=== PATIENT | female | born 1980 | race Caucasian/White ===

== ENCOUNTER 2018-04-28 06:49 | Inpatient (IN) | payer BC, MEDICAID ==
[~2018-04-28 06:49] MED LIST: Lidocaine 1%/Sod Bicarbonate in NS 8.4% 1 ML Syringe IDERM PRN; Sodium Chloride 0.9% 10 ML Syringe FLUSH PRN
[2018-04-28] MEDS ORDERED: Ondansetron 4 MG/2 ML SDV ONE (07:14)
[2018-04-28] MEDS ORDERED: Lidocaine 1% 4 ML ONE (07:14)
[2018-04-28] MEDS ORDERED: Midazolam 1 MG/ML 2 ML SDV ONE (07:14)
[2018-04-28] MEDS ORDERED: Propofol 200 MG/20 ML SDV ONE (07:14)
[2018-04-28] MEDS ORDERED: Rocuronium 50 MG/5 ML Vial ONE (07:14)
[2018-04-28] MEDS ORDERED: fentaNYL 250 MCG/5 ML SDV ONE (07:15)
[2018-04-28] MEDS: Lactated Ringers 1,000 ML IV SCH ×2 (07:15→10:38)
[2018-04-28] MEDS ORDERED: ceFAZolin 1 GM Vial ONE (07:15)
--- NOTE | 2018-04-28 07:28 | PCM.PREANE ---
Preanesthetic Assessment - Procedure Proposed Procedure: total abdominal hyst with BSO - Anesthesia/Transfusion/Family Hx Anesthesia History: Prior Anesthesia Without Reaction Family History of Anesthesia Reaction: No Transfusion History: No Prior Transfusion(s) - Review of Systems General: No Symptoms Pulmonary: No Symptoms Cardiovascular: No Symptoms Gastrointestinal: No Symptoms Neurological: No Symptoms Other: Reports: Easy Bruising, Sinus Problem (chronic sinusitis), Depression - Physical Assessment NPO Status Date: 04/27/18 NPO Status Time: 23:45 Pulse: 64 O2 Sat by Pulse Oximetry: 100 Respiratory Rate: 16 Blood Pressure: 113/56 Temperature: 98.7 F Height: 5 ft 2 in Weight: 57.652 kg ASA Class: 1 Mental Status: Alert & Oriented x3 Airway Class: Mallampati = 1 Dentition: Reports: Normal Dentition Thyro-Mental Finger Breadths: 3 Mouth Opening Finger Breadths: 3 ROM/Head Extension: Full Lungs: Clear to Auscultation, Normal Respiratory Effort Cardiovascular: Regular Rate, Regular Rhythm - Lab Values: Laboratory Last Values WBC 7.50 K/mm3 (3.98-10.04) 04/23/18 11:55 RBC 4.37 M/mm3 (3.98-5.22) 04/23/18 11:55 Hgb 13.4 gm/L (11.2-15.7) 04/23/18 11:55 Hct 39.1 % (34.1-44.9) 04/23/18 11:55 MCV 89.5 fl (79.4-94.8) 04/23/18 11:55 MCH 30.7 pg (25.6-32.2) 04/23/18 11:55 MCHC 34.3 g/dl (32.2-35.5) 04/23/18 11:55 RDW Std Deviation 41.1 fL (36.4-46.3) 04/23/18 11:55 Plt Count 351 K/mm3 (182-369) 04/23/18 11:55 MPV 10.4 fl (9.4-12.3) 04/23/18 11:55 Neut % (Auto) 64.1 % (34.0-71.1) 04/23/18 11:55 Lymph % (Auto) 22.8 % (19.3-51.7) 04/23/18 11:55 [place] % (Auto) 10.4 % (4.7-12.5) 04/23/18 11:55 Eos % (Auto) 2.0 (0.7-5.8) 04/23/18 11:55 Baso % (Auto) 0.7 % (0.1-1.2) 04/23/18 11:55 Neut # (Auto) 4.81 K/mm3 (1.56-6.13) 04/23/18 11:55 Lymph # (Auto) 1.71 K/mm3 (1.18-3.74) 04/23/18 11:55 [place] # (Auto) 0.78 K/mm3 (0.24-0.36) H 04/23/18 11:55 Eos # (Auto) 0.15 K/mm3 (0.04-0.36) 04/23/18 11:55 Baso # (Auto) 0.05 K/mm3 (0.01-0.08) 04/23/18 11:55 Creatinine 0.8 mg/dL (0.55-1.02) 04/23/18 11:55 Est Cr Clr Drug Dosing TNP 04/23/18 11:55 Estimated GFR (MDRD) > 60 mL/min (>60) 04/23/18 11:55 Urine Color Yellow (Yellow) 04/23/18 11:55 Urine Appearance Clear (Clear) 04/23/18 11:55 Urine pH 6.0 (5.0-8.0) 04/23/18 11:55 Ur Specific [place] 1.025 (1.005-1.030) 04/23/18 11:55 Urine Protein Negative (Negative) 04/23/18 11:55 Urine Glucose (UA) Negative (Negative) 04/23/18 11:55 Urine Ketones Negative (Negative) 04/23/18 11:55 Urine Occult Blood Negative (Negative) 04/23/18 11:55 Urine Nitrite Negative (Negative) 04/23/18 11:55 Urine Bilirubin Negative (Negative) 04/23/18 11:55 Urine Urobilinogen 0.2 (0.2-1.0) 04/23/18 11:55 Ur Leukocyte Esterase Negative (Negative) 04/23/18 11:55 Urine RBC Not seen /hpf (0-5) 04/23/18 11:55 Urine WBC Not seen /hpf (0-5) 04/23/18 11:55 Ur Epithelial Cells Not seen /hpf (0-5) 04/23/18 11:55 Urine Bacteria Not seen /hpf (FEW) 04/23/18 11:55 Urine Mucus Not seen /hpf (FEW) 04/23/18 11:55 Urine HCG, Qual Negative (NEGATIVE) 04/23/18 11:55 - Allergies Allergies/Adverse Reactions: Allergies Allergy/AdvReac Type Severity Reaction Status Date / Time amoxicillin Allergy Hives Verified 04/24/18 14:47 Sulfa (Sulfonamide Allergy Hives Verified 04/24/18 14:47 Antibiotics) erythromycin base AdvReac Nausea and Verified 04/24/18 14:47 Vomiting - Blood Blood Available: Yes - Acknowledgements Anesthesia Type Planned: General Anesthesia Pt an Appropriate Candidate for the Planned Anesthesia: Yes Alternatives and Risks of Anesthesia Discussed w Pt/Guardian: Yes Pt/Guardian Understands and Agrees with Anesthesia Plan: Yes PreAnesthesia Questionnaire HEENT History: Reports: Allergic Rhinitis Cardiovascular History: Reports: None Respiratory History: Reports: Asthma, Other (See Below) Other Respiratory History: hx sports induced asthma- no problems now Gastrointestinal History: Reports: Celiac Disease, Irritable Bowel Syndrome Other Gastrointestinal History: IBS and celiac disease, gastric ulcer Genitourinary History: Reports: None 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: Reports: Endometriosis Musculoskeletal History: Reports: None Neurological History: Reports: None Psychiatric History: Reports: Depression Endocrine/Metabolic History: Reports: None Hematologic History: Reports: None Immunologic History: Reports: None Oncologic (Cancer) History: Reports: None Dermatologic History: Reports: None - Past Surgical History Head Surgeries/Procedures: Reports: None HEENT Surgical History: Reports: Naso-Sinus Surgery Cardiovascular Surgical History: Reports: None GI Surgical History: Reports: Appendectomy, Cholecystectomy, Colonoscopy Other GI Surgeries/Procedures: hx of colonoscopy and duodenoscopy with bx, exploratory laparotomy and exploratory laparoscopy Female Surgical History: Reports: None Male Surgical History: Reports: None Endocrine Surgical History: Reports: None Neurological Surgical History: Reports: None Musculoskeletal Surgical History: Reports: None Other Musculoskeletal Surgeries/Procedures:: surgery to right 5th finger Oncologic Surgical History: Reports: None - SUBSTANCE USE Smoking Status *Q: Never Smoker Tobacco Use Within Last Twelve Months: No Second Hand Smoke Exposure: No Days Per Week of Alcohol Use: 0 Recreational Drug Use History: No - HOME MEDS Home Medications: Home Meds Cetirizine [ZyrTEC] 0.5 tab PO ACDINNER 01/27/17 [History] Lactobacillus Combination No.4 [Probiotic] 1 tab PO DAILY 01/27/17 [History] Multivitamin [Multivitamins] 1 tab PO DAILY 01/27/17 [History] Biocleanse 1 tab PO DAILY 04/24/18 [History] Glucosamine [Glucosamine Sulfate] 1,000 mg PO DAILY 04/24/18 [History] - CURRENT (IN HOUSE) MEDS Current Meds: Current Medications Lactated Ringer's (Ringers, Lactated) 1,000 mls @ 125 mls/hr IV ASDIRECTED DK Stop: 04/28/18 23:00 Lidocaine/Sodium Bicarbonate (Buffered Lidocaine 1% In Ns 8.4%) 0.25 ml IDERM ONETIME PRN PRN Reason: Prior to IV Start Stop: 04/28/18 18:00 Sodium Chloride (Saline Flush) 10 ml FLUSH ASDIRECTED PRN PRN Reason: Keep Vein Open Stop: 04/28/18 18:00 Discontinued Medications Bupivacaine HCl (Marcaine 0.5%) Confirm Administered Dose 30 ml .ROUTE .STK-MED ONE Stop: 04/28/18 07:16 Cefazolin Sodium (Ancef) Confirm Administered Dose 2 gm .ROUTE .STK-MED ONE Stop: 04/28/18 07:16 Fentanyl (Sublimaze) Confirm Administered Dose 250 mcg .ROUTE .STK-MED ONE Stop: 04/28/18 07:16 Lidocaine HCl (Xylocaine-Mpf 1%) Confirm Administered Dose 4 mls @ as directed .ROUTE .STK-MED ONE Stop: 04/28/18 07:15 Midazolam HCl (Versed 1 Mg/Ml) Confirm Administered Dose 2 mg .ROUTE .STK-MED ONE Stop: 04/28/18 07:15 Ondansetron HCl (Zofran) Confirm Administered Dose 4 mg .ROUTE .STK-MED ONE Stop: 04/28/18 07:15 Propofol (Diprivan 20 Ml) Confirm Administered Dose 200 mg .ROUTE .STK-MED ONE Stop: 04/28/18 07:15 Rocuronium [place] (Zemuron) Confirm Administered Dose 50 mg .ROUTE .STK-MED ONE Stop: 04/28/18 07:15
[2018-04-28] MEDS ORDERED: Dexamethasone 4 MG/ML 5 ML MDV ONE (08:00)
[2018-04-28] MEDS ORDERED: Lactated Ringers 1,000 ML ONE ×2 (08:11→09:01)
[2018-04-28] MEDS ORDERED: HYDROmorphone 0.5 MG/0.5 ML Syringe IVPUSH PRN (08:13)
[2018-04-28] MEDS ORDERED: Meperidine PF 50 MG/ML Syringe IVPUSH PRN (08:13)
[2018-04-28] MEDS ORDERED: Ondansetron 4 MG/2 ML SDV IVPUSH PRN (08:13)
[2018-04-28] MEDS ORDERED: fentaNYL 100 MCG/2 ML SDV IVPUSH PRN (08:13)
[2018-04-28] MEDS: Bupivacaine 0.5% 30 ML SDV ONE ×2 (08:14→08:28)
[2018-04-28] MEDS ORDERED: HYDROmorphone 0.5 MG/0.5 ML Syringe ONE ×3 (08:16→09:19)
[2018-04-28] MEDS ORDERED: fentaNYL 100 MCG/2 ML SDV ONE (08:44)
--- NOTE | 2018-04-28 10:00 | PCM.POSTAN ---
POST ANESTHESIA ASSESSMENT - MENTAL STATUS Mental Status: Alert, Oriented - VITAL SIGNS Pulse Rate: 87 SaO2: 100 Resp Rate: 15 Blood Pressure: 123/67 Temperature: 98.5 F - RESPIRATORY Respiratory Status: Respiratory Rate WNL, Airway Patent, O2 Saturation Stable, Supplemental Oxygen - CARDIOVASCULAR CV Status: Pulse Rate WNL, Blood Pressure Stable - GASTROINTESTINAL GI Status: No Symptoms - PAIN Pain Score: 8 - POST OP HYDRATION Hydration Status: Adequate & Stable
--- NOTE | 2018-04-28 11:05 | PCM.OPNOTE ---
- General Post-Op/Procedure Note Date of Surgery/Procedure: 04/28/18 Operative Procedure(s): Total abdominal hysterectomy with bilateral salpingo- oophorectomy, lysis of pelvic adhesions Findings: Patient appeared to have moderate scarring into the anterior abdominal wall. Upon entry into the pelvic cavity patient is noted to have what appears to be stage IV endometriosis. She is bilateral ovarian endometriomas, left side greater than right in size. Cul-de-sac is completely obliterated. The anterior sigmoid colon was adhered to the posterior aspect of the uterus. Fallopian tubes bilaterally were very filled and tortuous and adhered to the posterior aspect of the uterus or the pelvic sidewall. Anterior cul-de-sac was reasonably free of endometriosis and/or adhesions. Uterus was irregularly shaped consistent with fibroids which diagnosed preoperatively. Pre Op Diagnosis: 1. Dysmenorrhea. 2. Dyspareunia. 3. Menorrhagia. 4. Endometriosis. 5. Pelvic pain. 6. Uterine fibroids Post-Op Diagnosis: Same with the addition of severe pelvic adhesions. Anesthesia Technique: General ET Tube Other Anesthesia Type: Marcaine 0.5%20 mL local Primary Surgeon: Sameer Muro Secondary Surgeon: Sunil Bailey Anesthesia Provider: Yaneli Thomson Reason Scrap Yard Worker Was Necessary: Retraction, assistance, patient's safety, quality of care Role of Scrap Yard Worker: Retraction and assistance Fluid Replacement, Intraop: 2,700 Output, Urine Amount: 150 EBL in mLs: 700 Drain/Tube Comments:: Indwelling bladder catheter Complications: None Condition: Good Free Text/Narrative:: Intake & Output 04/27/18 04/28/18 04/28/18 22:59 06:59 14:59 Intake Total 305 Output Total 350 Balance -45 Surgery duration: 82 minutes Procedure: The patient was taken to the operating room and placed in the supine position on the operating table general endotracheal anesthesia was history. Patient received 2 g of Ancef preoperatively for infection prophylaxis and sequential compression stockings in place for DVT prophylaxis. After adequate anesthesia was draped in usual fashion. An indwelling bladder catheter was placed. The anterior abdominal wall was entered through the grand still incision scar. This after Marcaine infiltration with 20 mL of 0.5% solutio The incision was made through the skin and carried down subcutaneous and fascial layers using sharp dissection. The fascial layer was undermined superiorly and inferiorly to allow for adequate operating room. Recti muscles were midline and the pre-peritoneal fat pad was bluntly dissected. Peritoneal cavity was entered high and without problems. It was immediately apparent that there were significant adhesions and significant endometriosis involved. The sigmoid colon was attached to the backside of the uterus. Both ovaries appeared be involved with endometriomas left side greater than size and right side. Findings otherwise as described above. Initially the sigmoid colon was dissected off the back of the uterus without problems. This using sharp and blunt dissection. The bowel was then packed well out of the way. Decision was made to remove the uterus initially and then work on the adnexa afterwards because of the space-occupying effect of the uterus. The upper cornual area, round ligament, round ligament portion of the uterus was crossclamped with Casi clamps on each side. Pedicles were cut and suture ligated using #1 Vicryl. The broad ligament and eventually the uterine vasculature and cardinal and were taken down in much the same fashion bilaterally. The cardinal ligament and the cervix was then freed up using straight [place] Casi clamps. Each pedicle being suture ligated with Casi stitch of #1 Vicryl. The vagina were crossclamped for hemostasis reasons and the uterine specimen with cervix intact was removed. These last 2 pedicles were suture-ligated using Casi stitch of 1 Vicryl and the short stance in between was closed with a running lock suture of #1 Vicryl in a locked fashion. Attention was then turned towards the right adnexa. The infundibulopelvic ligament was dissected out and clamped and suture ligated. The remaining part of the ovary and the fallopian tube were freed up using sharp and blunt dissection with the endometrioma been completely removed. It was attached to the posterior aspect of the uterus and to the pelvic sidewall. It appeared to be well away from the ureter. The left ovary was then removed in much the same fashion. The endometrioma did rupture and this resulted in release of chocolate-appearing fluid. This is well irrigated out of the pelvic cavity. After the left ovary and fallopian tube were removed, the posterior cul-de-sac had several small bleeders present. 2 these on the anterior surface of the sigmoid colon were controlled with figure- of-eight suture of 3-0 Monocryl using a small needle. With pressure and over the course of short period time the remainder bleeding is essentially stopped. FloSeal was applied to the raw surfaces where the endometriomas had been to dissected free from. This to ensure hemostasis. At this time pelvis was reevaluated and found to be hemostatically intact. Remaining sponges were removed from the abdominal cavity and sponge instrument needle counts were correct at this point. Anterior abdominal wall was then closed. The fascia was closed with #1 PDS from angle to angle. Subcutaneous scarring was freed up which allowed reapproximation skin using a 3-0 Monocryl suture on a Martin needle in a running subcuticular fashion. The skin incision was further approximated using Prineo mesh. At the end of the procedures, sponge instrument needle counts are correct. Patient is in good condition. She was awakened from general endotracheal anesthesia and left the operating room in good condition.
[2018-04-28] MEDS: Morphine 2 MG/ML Syringe IVPUSH PRN ×2 (12:12→21:28)
[2018-04-28] MEDS: Acetaminophen/oxyCODONE 325-5 MG Tab PO PRN ×2 (14:38→19:00)
[2018-04-28] MEDS: Ondansetron 4 MG/2 ML SDV IVPUSH PRN ×2 (14:43→19:00)
[2018-04-28] MEDS: Ibuprofen 600 MG Tab PO PRN (17:44)
[2018-04-29] MEDS: Morphine 2 MG/ML Syringe IVPUSH PRN (00:03)
[2018-04-29] MEDS: Acetaminophen/oxyCODONE 325-5 MG Tab PO PRN ×4 (02:36→16:01)
[2018-04-29] MEDS: Docusate Sodium 100 MG Cap PO SCH ×2 (05:47→08:11)
--- NOTE | 2018-04-29 07:44 | PCM48HPAN ---
Post Anesthesia Note - EVALUATION WITHIN 48HRS OF ANESTHETIC Vital Signs in Normal Range: Yes Patient Participated in Evaluation: Yes Respiratory Function Stable: Yes Airway Patent: Yes Cardiovascular Function Stable: Yes Hydration Status Stable: Yes Pain Control Satisfactory: Yes Nausea and Vomiting Control Satisfactory: Yes Mental Status Recovered: Yes Pulse Rate: 79 Resp Rate: 16 Temperature: 36.9 C Blood Pressure: 120/66 - COMMENTS/OBSERVATIONS Free Text/Narrative:: no anesthesia complications noted
--- NOTE | 2018-04-29 07:47 | PCM.DCSUM1 ---
Discharge Summary - Hospital Course Free Text/Narrative:: Annita is a 38-year-old nulligravida white female admitted yesterday for total abdominal hysterectomy and bilateral salpingo-oophorectomy.Diagnosis was endometriosis, dysmenorrhea, dyspareunia, menorrhagia, uterine fibroids, pelvic pain. Total abdominal hysterectomy with bilateral salpingo-oophorectomy was performed. She is recovering well. Pain has been under good control with morphine sulfate initially followed by Percocet. Patient was started on Motrin this a.m. and will be discharged later on in the day. Vital signs and stable. Patient is afebrile. Follow-up hemoglobin is 10.9 and platelets of 354,000 this morning. - Discharge Data Discharge Date: 04/29/18 Discharge Disposition: Home, Self-Care 01 Condition: Good - Patient Summary/Data Operative Procedure(s) Performed: Total abdominal hysterectomy with bilateral salpingo-oophorectomy, lysis of pelvic adhesions - Patient Instructions Diet: Regular Diet as Tolerated Activity: As Tolerated (No intercourse or tampons until seen back. No lifting greater than 15 pounds or driving a car 1 week.) Driving: Do Not Drive Showering/Bathing: May Shower Wound/Incision Care: Keep Operative Site/Wound Site Clean and Dry Notify Provider of: Fever, Increased Pain, Swelling and Redness, Drainage, Nausea and/or Vomiting - Discharge Plan Prescriptions/Med Rec: Ibuprofen 600 mg PO Q4H PRN #30 tablet PRN Reason: Pain Home Medications: Home Meds Cetirizine [ZyrTEC] 0.5 tab PO ACDINNER 01/27/17 [History] Lactobacillus Combination No.4 [Probiotic] 1 tab PO DAILY 01/27/17 [History] Multivitamin [Multivitamins] 1 tab PO DAILY 01/27/17 [History] Biocleanse 1 tab PO DAILY 04/24/18 [History] Glucosamine [Glucosamine Sulfate] 1,000 mg PO DAILY 04/24/18 [History] Acetaminophen/oxyCODONE [Percocet 325-5 MG] 2 tab PO Q4H PRN tablet 04/29/18 [ Rx] Ibuprofen 600 mg PO Q4H PRN #30 tablet 04/29/18 [Rx] Referrals: Sameer Muro MD [Physician] - (Return to [facility] weeks.) - Discharge Summary/Plan Comment DC Time >30 min.: No Discharge Summary/Plan Comment: Discharge instructions: 1. Discharge home 2. Irregular, high fiber diet 3. Routine postoperative activity as outlined with patient and in discharge summary 4. Return to clinic in 2 weeksDr. Muro. 5. Call for increased pain, bleeding, temperature, signs/symptoms of DVT or PE or signs symptoms of infection. - Patient Data Vitals - Most Recent: Last Vital Signs Temp 37.9 C 04/29/18 04:00 Pulse 67 04/29/18 04:00 Resp 16 04/29/18 04:00 BP 125/72 04/29/18 00:00 Pulse Ox 98 04/29/18 04:00 Weight - Most Recent: 57.652 kg I&O - Last 24 hours: Intake & Output 04/28/18 04/29/18 04/29/18 22:59 06:59 14:59 Intake Total 1120 Output Total 750 2400 Balance 370 -2400 Lab Results - Last 24 hrs: Laboratory Results - last 24 hr 04/28/18 04/29/18 Range/Units 07:23 05:55 WBC 11.85 H (3.98-10.04) K/mm3 RBC 3.55 L (3.98-5.22) M/mm3 Hgb 10.9 L (11.2-15.7) gm/L Hct 31.7 L (34.1-44.9) % MCV 89.3 (79.4-94.8) fl MCH 30.7 (25.6-32.2) pg MCHC 34.4 (32.2-35.5) g/dl RDW Std Deviation 39.3 (36.4-46.3) fL Plt Count 354 (182-369) K/mm3 MPV 10.7 (9.4-12.3) fl Blood Type A POSITIVE Gel Antibody Screen Negative Med Orders - Current: Current Medications Docusate Sodium (Colace) 100 mg PO BID [facility] Last Admin: 04/29/18 05:47 Dose: Not Given Ibuprofen (Motrin) 600 mg PO Q6H PRN PRN Reason: Pain (mild 1-3) Last Admin: 04/28/18 17:44 Dose: 600 mg Morphine Sulfate (Morphine) 1 mg IVPUSH Q2H PRN PRN Reason: Pain (severe 7-10) Last Admin: 04/29/18 00:03 Dose: 1 mg Ondansetron HCl (Zofran) 4 mg IVPUSH Q4H PRN PRN Reason: Nausea/Vomiting Last Admin: 04/28/18 19:00 Dose: 4 mg Oxycodone/Acetaminophen (Percocet 325-5 Mg) 2 tab PO Q4H PRN PRN Reason: Pain (moderate 4-6) Last Admin: 04/29/18 03:22 Dose: 1 tab Estrogens,Conjugated (0.625 Mg Tab.) 0 each PO DAILY DK Discontinued Medications Bupivacaine HCl (Marcaine 0.5%) Confirm Administered Dose 30 ml .ROUTE .STK-MED ONE Stop: 04/28/18 07:16 Last Admin: 04/28/18 08:14 Dose: 20 ml Cefazolin Sodium (Ancef) Confirm Administered Dose 2 gm .ROUTE .STK-MED ONE Stop: 04/28/18 07:16 Dexamethasone (Dexamethasone) Confirm Administered Dose 20 mg .ROUTE .STK-MED ONE Stop: 04/28/18 08:01 Fentanyl (Sublimaze) Confirm Administered Dose 250 mcg .ROUTE .STK-MED ONE Stop: 04/28/18 07:16 Fentanyl (Sublimaze) 50 mcg IVPUSH Q5M PRN PRN Reason: Pain Stop: 04/28/18 10:30 Fentanyl (Sublimaze) Confirm Administered Dose 100 mcg .ROUTE .STK-MED ONE Stop: 04/28/18 08:45 Hydromorphone HCl (Dilaudid) 0.5 mg IVPUSH ONETIME PRN PRN Reason: Pain (severe 7-10) Stop: 04/28/18 10:30 Last Admin: 04/28/18 10:15 Dose: 0.5 mg Hydromorphone HCl (Dilaudid) Confirm Administered Dose 0.5 mg .ROUTE .STK-MED ONE Stop: 04/28/18 08:17 Hydromorphone HCl (Dilaudid) Confirm Administered Dose 0.5 mg .ROUTE .STK-MED ONE Stop: 04/28/18 08:28 Hydromorphone HCl (Dilaudid) Confirm Administered Dose 0.5 mg .ROUTE .STK-MED ONE Stop: 04/28/18 09:20 Lactated Ringer's (Ringers, Lactated) 1,000 mls @ 125 mls/hr IV ASDIRECTED DK Stop: 04/28/18 23:00 Last Admin: 04/28/18 10:38 Dose: 125 mls/hr Lidocaine HCl (Xylocaine-Mpf 1%) Confirm Administered Dose 4 mls @ as directed .ROUTE .STK-MED ONE Stop: 04/28/18 07:15 Lactated Ringer's (Ringers, Lactated) Confirm Administered Dose 1,000 mls @ as directed .ROUTE .ST-MED ONE Stop: 04/28/18 08:12 Lactated Ringer's (Ringers, Lactated) Confirm Administered Dose 1,000 mls @ as directed .ROUTE .[facility]-MED ONE Stop: 04/28/18 09:02 Lidocaine/Sodium Bicarbonate (Buffered Lidocaine 1% In Ns 8.4%) 0.25 ml IDERM ONETIME PRN PRN Reason: Prior to IV Start Stop: 04/28/18 18:00 Last Admin: 04/28/18 07:15 Dose: 0.25 ml Meperidine HCl (Demerol) 12.5 mg IVPUSH ONETIME PRN PRN Reason: shivering Stop: 04/28/18 10:30 Midazolam HCl (Versed 1 Mg/Ml) Confirm Administered Dose 2 mg .ROUTE .STK-MED ONE Stop: 04/28/18 07:15 Ondansetron HCl (Zofran) Confirm Administered Dose 4 mg .ROUTE .ST-MED ONE Stop: 04/28/18 07:15 Ondansetron HCl (Zofran) 4 mg IVPUSH ONETIME PRN PRN Reason: Nausea/Vomiting Stop: 04/28/18 10:30 Propofol (Diprivan 20 Ml) Confirm Administered Dose 200 mg .ROUTE .STK-MED ONE Stop: 04/28/18 07:15 Rocuronium [place] (Zemuron) Confirm Administered Dose 50 mg .ROUTE .STK-MED ONE Stop: 04/28/18 07:15 Sodium Chloride (Saline Flush) 10 ml FLUSH ASDIRECTED PRN PRN Reason: Keep Vein Open Stop: 04/28/18 18:00
[2018-04-29] MEDS: Ibuprofen 600 MG Tab PO PRN ×2 (08:12→16:01)
[2018-04-29] MEDS ORDERED: ESTROGENS CONJUGATED 0.625 MG PO SCH (09:00)
[2018-04-29] MEDS ORDERED: Ondansetron 4 MG Tab.DIS PO ONE (13:59)
[2018-04-29 16:06] VITALS: BP 110/56
== END 2018-04-29 16:15 | disposition home or self-care (01) | DRG 513 ==
LOC: JD.OB 06:49 → INTOOBSV 06:49 → JD.OB 17:18 → OBSVTOIN 17:18
PROVIDERS: ADMIT Obstetrics & Gynecology; ATTEND Obstetrics & Gynecology
PROC: 0UT90ZZ Resection of Uterus, Open Approach (ICD-10-PCS; principal; 2018-04-28)
PROC: 0UT20ZZ Resection of Bilateral Ovaries, Open Approach (ICD-10-PCS; 2018-04-28)
PROC: 0UT70ZZ Resection of Bilateral Fallopian Tubes, Open Approach (ICD-10-PCS; 2018-04-28)
DX: N80.3 Endometriosis of pelvic peritoneum (principal); N80.1 Endometriosis of ovary; D25.9 Leiomyoma of uterus, unspecified; N73.6 Female pelvic peritoneal adhesions (postinfective); K58.9 Irritable bowel syndrome, unspecified; J45.909 Unspecified asthma, uncomplicated; Z79.899 Other long term (current) drug therapy; Z88.2 Allergy status to sulfonamides; Z80.0 Family history of malignant neoplasm of digestive organs
CPT/HCPCS: 00840; 36415; 81001; 81025; 82565; 85025; 85027; 86850; 86900; 86901; A9270-GY; J0690; J1100; J1170; J2001; J2250; J2270; J2405; J2704; J3010; J7120

== ENCOUNTER → 2022-07-09 | Day surgery (SDC) | payer OTHER, MEDICAID ==
[~2022-07-09] MED LIST changes: +Bupivacaine 0.5% 30 ML SDV ONE; +Dexamethasone 4 MG/ML 5 ML MDV ONE; +HYDROmorphone 0.5 MG/0.5 ML Syringe IVPUSH PRN; +Ibuprofen 600 MG Tab PO PRN; +Ketorolac 30 MG/ML SDV IVPUSH ONE; +Ketorolac 30 MG/ML SDV IVPUSH SCH; +Ketorolac 30 MG/ML SDV ONE; +Lactated Ringers 1,000 ML IV SCH; +Lidocaine 1% 4 ML ONE; +Midazolam 1 MG/ML 2 ML SDV ONE; +Neostigmine Methylsulfate 10 MG/10 ML MDV ONE; +Ondansetron 4 MG/2 ML SDV IVPUSH PRN; +Ondansetron 4 MG/2 ML SDV ONE; +Propofol 200 MG/20 ML SDV ONE; +Rocuronium 50 MG/5 ML Vial ONE; +Scopolamine 1.5 MG Transdermal Patch TRDERM ONE; +Sodium Chloride 0.9% 10 ML Syringe FLUSH SCH; +ceFAZolin 2 GM Vial ONE; +fentaNYL 100 MCG/2 ML SDV IVPUSH PRN; +fentaNYL 250 MCG/5 ML SDV ONE
[2022-07-09 13:56] VITALS: BP 108/66; PULSE 60
== END | disposition home or self-care (01) ==
LOC: JD.SDS 09:50
PROVIDERS: ATTEND Obstetrics & Gynecology
DX: K66.0 Peritoneal adhesions (postprocedural) (postinfection) (principal); F32.A Depression, unspecified; K58.9 Irritable bowel syndrome, unspecified; N80.9 Endometriosis, unspecified; F41.9 Anxiety disorder, unspecified; J45.909 Unspecified asthma, uncomplicated; K21.9 Gastro-esophageal reflux disease without esophagitis; Z88.1 Allergy status to other antibiotic agents; Z88.2 Allergy status to sulfonamides; Z88.6 Allergy status to analgesic agent; Z79.899 Other long term (current) drug therapy; Z90.49 Acquired absence of other specified parts of digestive tract; Z98.890 Other specified postprocedural states; Z87.19 Personal history of other diseases of the digestive system; Z90.710 Acquired absence of both cervix and uterus
CPT/HCPCS: 36415; 49329; 81003; 85025; A9270; J0690; J1100; J1885; J2250; J2405; J2704; J2710; J3010; J3490; J7120; 00840